=== PATIENT | female | born 1945 | race Caucasian/White ===

== ENCOUNTER 2017-07-07 23:43 | Emergency (ER) | payer MEDICARE, MEDICAID ==
[2017-07-07] MEDS ORDERED: Ibuprofen 600 MG Tab PO ONE (23:57)
--- NOTE | 2017-07-08 00:02 | EDM.PDOC ---
ED HPI GENERAL MEDICAL PROBLEM - General Stated Complaint: RT HAND PAIN Time Seen by Provider: 07/07/17 23:51 Source of Information: Reports: Patient, Family History Limitations: Reports: No Limitations - History of Present Illness INITIAL COMMENTS - FREE TEXT/NARRATIVE: 72 y.o.w.f with a h/o right wrist pain, seen by a hand surgeon in the past, was pulling herself up on a truck handle and felt sudden pain at her right wrist lat aspect. no direct trauma. Movement makes the pain worse. Pt had cortisone injections a year ago. No other acute medical issues. BP 159/91 pulse 65 RR 16 , Temp 36.6 Pulse ox 97% on RA Onset Date: 07/07/17 Onset Time: 22:00 Duration: Hour(s): Location: Reports: Upper Extremity, Right Quality: Reports: Ache, Burning, Dull, Pressure Severity: Moderate Improves with: Reports: Rest Worsens with: Reports: Movement Context: Reports: Lifting (herself up in a truck) Associated Symptoms: Reports: No Other Symptoms right wrist Pain Score (Numeric/FACES): 8 - Related Data Allergies Allergy/AdvReac Type Severity Reaction Status Date / Time Penicillins Allergy Itching Verified 07/08/17 00:07 Home Meds: Home Meds . [Unable to Verify Home Med List] 07/08/17 [History] Review of Systems - Review of Systems Review Of Systems: See Below Constitutional: Reports: No Symptoms Eyes: Reports: No Symptoms Ears: Reports: No Symptoms Nose: Reports: No Symptoms Mouth/Throat: Reports: No Symptoms Respiratory: Reports: No Symptoms Cardiovascular: Reports: No Symptoms GI/Abdominal: Reports: No Symptoms Genitourinary: Reports: No Symptoms Musculoskeletal: Reports: No Symptoms, Joint Pain (right wrist), Joint Swelling Skin: Reports: No Symptoms Neurological: Reports: No Symptoms Psychiatric: Reports: No Symptoms ED EXAM, GENERAL - Physical Exam Exam: See Below Exam Limited By: No Limitations General Appearance: Alert, WD/WN, Mild Distress Eye Exam: Bilateral Eye: Normal Inspection Ears: Normal External Exam Ear Exam: Bilateral Ear: Auricle Normal Nose: Normal Inspection, Normal Mucosa, No Blood Throat/Mouth: Normal Inspection, Normal Lips, Normal Voice, No Airway Compromise Head: Atraumatic, Normocephalic Neck: Normal Inspection, Supple, Non-Tender, Full Range of Motion Respiratory/Chest: No Respiratory Distress, Lungs Clear, Normal Breath Sounds, No Accessory Muscle Use, Chest Non-Tender Cardiovascular: Normal Peripheral Pulses, Regular Rate, Rhythm, No Edema, No Gallop, No JVD, No Murmur, No Rub Peripheral Pulses: 1+: Brachial (L) GI/Abdominal: Normal Bowel Sounds, Soft, Non-Tender, No Organomegaly, No Distention, No Abnormal Bruit (Female) Exam: Deferred Rectal (Female) Exam: Deferred Extremities: Limited Range of Motion (right wrist), Other (Z shaped right wrist) Neurological: Alert, Oriented, CN II-XII Intact, Normal Cognition, Normal Gait, No Motor/Sensory Deficits Psychiatric: Normal Affect, Normal Mood Skin Exam: Warm, Dry, Intact, Normal Color, No Rash Lymphatic: No Adenopathy Course - Vital Signs Text/Narrative:: 72 y.o.w.f with a h/o right wrist pain, seen by a hand surgeon in the past, was pulling herself up on a truck handle and felt sudden pain at her right wrist lat aspect. no direct trauma. Movement makes the pain worse. Pt had cortisone injections a year ago. No other acute medical issues. BP 159/91 pulse 65 RR 16 , Temp 36.6 Pulse ox 97% on RA PE: 72 y.o.w.f with right wrist pain. Imaging: SLAC wrist with apparent scaphoid deformity, DDX: Chronic triquetum Fx vs acute Fx as per RAD Impression: SLAC right wrist, with apparent scaphoid deformity Tx: Motrin, ICE Valcro splint Reeaxam: Improved ofter Motrin and ICE was applied. Plan: D/C with instructions Last Recorded V/S: Last Vital Signs Temp 36.9 C 07/08/17 01:35 Pulse 62 07/08/17 01:35 Resp 14 07/08/17 01:35 BP 145/82 H 07/08/17 01:35 Pulse Ox 96 07/08/17 01:35 - Orders/Labs/Meds Orders: Active Orders 24 hr Category Date Time Status Cooling Warming Measures [RC] ASDIRECTED Care 07/07/17 23:59 Active Wrist 2V Rt [CR] Stat Exams 07/07/17 23:58 Taken Ice Bag [Ice Therapy] [OM.PC] Routine Oth 07/07/17 23:59 Ordered Meds: Medications Discontinued Medications Generic Name Dose Route Start Last Admin Trade Name Yvette PRN Reason Stop Dose Admin Ibuprofen 600 mg 07/07/17 23:57 07/08/17 00:20 Motrin PO 07/07/17 23:58 600 mg ONETIME ONE Administration Departure - Departure Time of Disposition: 01:23 Disposition: Home, Self-Care 01 Condition: Good Clinical Impression: SLAC (scapholunate advanced collapse) wrist Qualifiers: Laterality: right Qualified Code(s): 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 Please f/u with your Hand surgeon, please come back to the ed if your symptoms get worse acutely. - My Orders Last 24 Hours: My Active Orders 07/07/17 23:58 Wrist 2V Rt [CR] Stat 07/07/17 23:59 Cooling Warming Measures [RC] ASDIRECTED Ice Bag [Ice Therapy] [OM.PC] Routine - Assessment/Plan Last 24 Hours: My Active Orders 07/07/17 23:58 Wrist 2V Rt [CR] Stat 07/07/17 23:59 Cooling Warming Measures [RC] ASDIRECTED Ice Bag [Ice Therapy] [OM.PC] Routine
== END 2017-07-08 01:40 | disposition home or self-care (01) ==
LOC: FB.ED 23:43
DX: M19.131 Post-traumatic osteoarthritis, right wrist (principal); Z88.0 Allergy status to penicillin
CPT/HCPCS: 73100-RT; 99283; A9270-GY

== ENCOUNTER 2022-12-02 20:19 | Emergency (ER) | payer MEDICAID, MEDICARE ==
[2022-12-02] MEDS ORDERED: Sodium Chloride 0.9% 500 ML IV ONE (20:59)
[2022-12-02] MEDS ORDERED: Morphine 4 MG/ML VIAL IVPUSH ONE (20:59)
[2022-12-02] MEDS ORDERED: Ondansetron 4 MG/2 ML SDV IVPUSH ONE (20:59)
[2022-12-02] MEDS ORDERED: Sodium Chloride 0.9% 10 ML Syringe FLUSH PRN (20:59)
[2022-12-02 21:19] LABS: BASOPHILS PERCENT AUTO 0.3 % (0.2-1.5); EOSINOPHILS ABSOLUTE AUTO 0.1 x10-3/uL (0.0-0.8); HEMATOCRIT 41.8 % (34.2-48.2); HEMOGLOBIN 14.1 g/dL (11.4-15.5); LYMPHOCYTES ABSOLUTE AUTO 1.9 x10-3/uL (1.0-4.4); MEAN CORPUSCULAR HEMOGLOBIN 32.1 pg (23.9-33.9); MEAN CORPUSCULAR HGB CONC 33.7 g/dL (31.9-34.8); MEAN CORPUSCULAR VOLUME 95.2 fL (76.7-100.5); MEAN PLATELET VOLUME 7.6 fL (7.1-12.4); MONOCYTES PERCENT AUTO 7.1 % (4.4-15.7); NEUTROPHILS ABSOLUTE AUTO 10.4 x10-3/uL (1.5-6.3); NEUTROPHILS PERCENT AUTO 77.6 % (30.8-76.2); PLATELET COUNT,PLT 304 x10(3)uL (151-488); RED BLOOD CELL COUNT 4.39 x10(6)uL (3.60-5.20); WHITE BLOOD CELL COUNT,WBC 13.4 x10-3/uL (3.0-10.3)
[2022-12-02 21:24] LABS: BLOOD UREA NITROGEN,BUN 30 mg/dL (7-18); CALCIUM 9.7 mg/dL (8.6-10.2); CARBON DIOXIDE,CO2 27 mmol/L (21-32); CHLORIDE,CL 102 mmol/L (100-110); EST CRCL DRUG DOSING (CG) 41.33 mL/min; ESTIMATED GFR 58 mL/min (>60); GLUCOSE RANDOM 119 mg/dL (80-116); POTASSIUM,K 4.7 mmol/L (3.5-5.3); SODIUM,NA 135 mmol/L (135-145)
[2022-12-02] MEDS ORDERED: Iopamidol 755 Mg/ML 100 ML Bottle IV ONE (21:25)
[2022-12-02 21:30] LABS: ALANINE AMINOTRANSFERASE,ALT 25 U/L (12-36); ALBUMIN 3.6 g/dL (3.2-4.6); ALKALINE PHOSPHATASE 81 IU/L (56-112); ASPARTATE AMNIOTRANSFERASE,AST 26 IU/L (5-25); BILIRUBIN TOTAL 0.4 mg/dL (0.1-1.3); MAGNESIUM 1.8 mg/dL (1.8-2.5); PROTEIN TOTAL,TP 7.3 g/dL (6.0-8.0)
[2022-12-02 21:57] LABS: BILIRUBIN,URINE NEGATIVE (NEGATIVE); GLUCOSE,URINE NORMAL (NORMAL); KETONES,URINE NEGATIVE (NEGATIVE); LEUKOCYTE ESTERASE,URINE NEGATIVE (NEGATIVE); NITRITE,URINE NEGATIVE (NEGATIVE); OCCULT BLOOD,URINE NEGATIVE (NEGATIVE); PROTEIN,URINE NEGATIVE (NEGATIVE); UROBILINOGEN,URINE NORMAL (NEGATIVE)
[2022-12-02 22:04] LABS: APPEARANCE,URINE CLEAR (CLEAR); BACTERIA,URINE FEW (NS); COLOR,URINE YELLOW (YELLOW); RBC,URINE 0-5 (0-5); SQUAMOUS EPITHELIAL CELLS,UR FEW (NS,R,O); WBC,URINE 0-5 (0-5)
[2022-12-03] MEDS ORDERED: Morphine 4 MG/ML VIAL IVPUSH ONE (02:28)
== END 2022-12-03 02:40 ==
LOC: FB.ED 20:19
DX: S06.6X0A Traumatic subarachnoid hemorrhage without loss of consciousness, initial encounter (principal); S32.010A Wedge compression fracture of first lumbar vertebra, initial encounter for closed fracture; S82.831A Other fracture of upper and lower end of right fibula, initial encounter for closed fracture; I11.0 Hypertensive heart disease with heart failure; I50.9 Heart failure, unspecified; E78.00 Pure hypercholesterolemia, unspecified; K21.9 Gastro-esophageal reflux disease without esophagitis; Z88.0 Allergy status to penicillin; Z79.82 Long term (current) use of aspirin; Z79.899 Other long term (current) drug therapy; W10.8XXA Fall (on) (from) other stairs and steps, initial encounter; Y92.009 Unspecified place in unspecified non-institutional (private) residence as the place of occurrence of the external cause
CPT/HCPCS: 70450; 71260; 72125; 73562; 73590; 74177; 80053; 81001; 83690; 83735; 85025; 96374; 96375; 96376; 99285; J2270; J2405; J7040; Q9967